=== PATIENT | female | born 2000 | race American Indian/Alaskan Native ===

== ENCOUNTER 2018-07-19 20:11 | Emergency (ER) | payer SELFPAY | END 2018-07-20 00:34 | disposition left against medical advice (07) | LOC: ED 20:11 ==

== ENCOUNTER 2019-05-26 10:16 | Emergency (ER) | payer SELFPAY ==
[2019-05-26 19:13] LABS: Bilirubin,Urine NEG (Negative); Blood,Urine NEG (Negative); Color,Urine Yellow (Yellow); Mucus,Urine 2+ /HPF; Protein,Urine <15 mg/dL mg/dL (Negative)
[2019-05-26 19:18] LABS: HCG Qualitative,Urine Negative (Negative)
--- NOTE | 2019-05-26 19:19 | Emergency Department Report ---
ED Female HPI - General Chief complaint: Urogenital-Female Stated complaint: PELVIC PAIN/VAGINAL DISCOMFORT Time Seen by Provider: 05/26/19 18:43 Source: patient Mode of arrival: Ambulatory Limitations: No Limitations - History of Present Illness Initial comments: 18-year-old female presents to the emergency room for vaginal bleeding and vaginal discomfort. Patient states that this has been going on for about 5 days. Patient states that it is worse with walking. Patient reports some vaginal discharge with no odor. Patient does admit to unprotected intercourse. Patient reports her last menstrual period was last week and then started today. Patient does not have a primary care provider is not on any medications and has no known drug allergies. MD Complaint: possible STD Onset/Timin -: days(s) Location: labia, perineum Severity: moderate Quality: sharp, burning Consistency: intermittent Improves with: none Worsens with: other (walking) Are you Now?: No - Related Data Sexually active: Yes : 0 Previous Rx's Medication Instructions Recorded Last Taken Type Neomycn/Bacitrc/Polymyx/Pramox 14.2 gm TP BID 10 Days #1 tube 03/19/18 Unknown Rx [Neosporin + Pain Relief Oint] traMADoL [Ultram] 50 mg PO Q6HR PRN #9 tablet 03/19/18 Unknown Rx Acyclovir [Zovirax Tab] 400 mg PO Q8H #30 tab 05/26/19 Unknown Rx Allergies Allergy/AdvReac Type Severity Reaction Status Date / Time No Known Allergies Allergy Verified 07/19/18 21:09 ED Review of Systems ROS: Stated complaint: PELVIC PAIN/VAGINAL DISCOMFORT Other details as noted in HPI Comment: All other systems reviewed and negative ED Past Medical Hx - Past Medical History Previous Medical History?: No - Surgical History Past Surgical History?: No - Social History Smoking Status: Never Smoker Substance Use Type: Marijuana - Medications Home Medications: Home Medications Medication Instructions Recorded Confirmed Last Taken Type Neomycn/Bacitrc/Polymyx/Pramox 14.2 gm TP BID 10 Days #1 tube 03/19/18 Unknown Rx [Neosporin + Pain Relief Oint] traMADoL [Ultram] 50 mg PO Q6HR PRN #9 tablet 03/19/18 Unknown Rx Acyclovir [Zovirax Tab] 400 mg PO Q8H #30 tab 05/26/19 Unknown Rx ED Physical Exam - General Limitations: No Limitations General appearance: alert - Head Head exam: Present: atraumatic, normocephalic - Eye Eye exam: Present: normal appearance - ENT ENT exam: Present: mucous membranes moist - Neck Neck exam: Present: full ROM - External exam: Present: erythema, lesions, other (bilateral groin lymphadenopathy with tenderness) Speculum exam: Present: normal speculum exam Bi-manual exam: Present: normal bi-manual exam - Back Exam Back exam: Present: normal inspection - Neurological Exam Neurological exam: Present: alert, oriented X3, normal gait - Psychiatric Psychiatric exam: Present: normal affect, normal mood - Skin Skin exam: Present: warm, dry, intact, normal color. Absent: rash ED Course Vital Signs 05/26/19 19:25 Temperature 98.1 F Pulse Rate 73 Respiratory 18 Rate Blood Pressure 123/74 [Left] O2 Sat by Pulse 99 Oximetry ED Medical Decision Making - Medical Decision Making 18-year-old female presents to the emergency room for vaginal bleeding and vaginal discomfort. Patient states that this has been going on for about 5 days. Patient states that it is worse with walking. Patient reports some vaginal discharge with no odor. Patient does admit to unprotected intercourse. Patient reports her last menstrual period was last week and then started today. Patient does not have a primary care provider is not on any medications and has no known drug allergies. Labs orders wet prep GC chlamydia and UA Discussed the patient appears that she has a herpes outbreak will place patient on acyclovir 400 mg 5 times a day for 7 days. Patient can take Tylenol or ibuprofen for pain. Critical care attestation.: If time is entered above; I have spent that time in minutes in the direct care of this critically ill patient, excluding procedure time. ED Disposition Clinical Impression: Genital herpes Qualifiers: Herpes simplex infection site: perianal skin Qualified Code(s): A60.1 - Herpesviral infection of perianal skin and rectum Disposition: TO HOME OR SELFCARE Is pt being admited?: No Does the pt Need Aspirin: No Condition: Stable Instructions: Genital Herpes Simplex (ED) Additional Instructions: Complete antiviral medication as prescribed. Urinalysis is negative for any infection, test is negative, wet prep is negative for any Trichomonas, negative for bacteria vaginosis and negative for yeast infection. He can bring your photo ID to medical records within 5-7 days to obtain your gonorrhea and chlamydia testing results. Prescriptions: Acyclovir [Zovirax Tab] 400 mg PO Q8H #30 tab Referrals: PRIMARY CARE, [Primary Care Provider] - 3-5 Days [facility] [place] [Outside] - 3-5 Days [facility] [Outside] - 3[facility]5 Days [facility] - [facility]5 Days
[2019-05-26 19:34] VITALS: BP 123/74
== END 2019-05-26 19:54 | disposition home or self-care (01) ==
LOC: ED 10:16
DX: A60.04 Herpesviral vulvovaginitis (principal); F12.10 Cannabis abuse, uncomplicated; Z79.899 Other long term (current) drug therapy
CPT/HCPCS: 81001; 81025; 87210; 87591